=== PATIENT | female | born 1950 | race Caucasian/White ===

== ENCOUNTER 2018-02-21 09:12 | Outpatient (CLI) | payer MEDICARE ==
--- NOTE | 2018-02-21 10:37 | RAD ---
THREE VIEWS LUMBAR SPINE: CLINICAL HISTORY: Low back pain. FINDINGS: Thee is evidence of vertebroplasty of T12 with mild associated height loss. Grade I spondylolisthesi s at L4-5 present. There is multilevel facet osteoarthritis. Mild disk degenerative change at the m id to lower lumbar spine is present. IMPRESSION: 1. No acute fracture identified. 2. T12 vertebroplasty. 3. Presumed degenerative listhesis at L4-5. POS: ODETTE
== END 2018-02-21 09:13 | disposition home or self-care (01) ==
LOC: RAD-FRANK 09:12
PROVIDERS: ATTEND Nurse Practitioner Family
DX: M54.5 Low back pain (principal); Z98.890 Other specified postprocedural states
CPT/HCPCS: 72100

== ENCOUNTER 2018-06-22 08:18 | Outpatient (CLI) | payer MEDICARE ==
--- NOTE | 2018-06-22 08:35 | RAD ---
XR Hand Rt 3 View STANDARD: 06/22/2018 12:00 AM CLINICAL INDICATION: Right hand pain COMPARISON: None. TECHNIQUE: 3 views. Laterality: Right hand. FINDINGS: Bones: No acute osseous abnormality Joints: There is scattered osteoarthrosis involving the IP joints of the right hand. There is mild fi rst CMC joint osteoarthrosis.. Soft Tissue: Normal-appearing. IMPRESSION: Scattered osteoarthrosis of the right hand.
== END 2018-06-22 08:19 | disposition home or self-care (01) ==
LOC: RAD-FRANK 08:18
PROVIDERS: ATTEND Nurse Practitioner Family
DX: M79.641 Pain in right hand (principal); M19.041 Primary osteoarthritis, right hand

== ENCOUNTER 2019-07-11 08:10 | Outpatient (CLI) | payer MEDICARE ==
--- NOTE | 2019-07-11 08:26 | RAD ---
Exam:Right thumb 3 views HISTORY: Evaluate for foreign body COMPARISON: None FINDINGS: No fracture, cortical irregularity or periosteal reaction. 3.5 mm foreign body is noted in the soft tissues overlying the first metacarpal. IMPRESSION: Radiopaque foreign body as above.
== END 2019-07-11 08:11 | disposition home or self-care (01) ==
LOC: RAD-FRANK 08:10
PROVIDERS: ATTEND Nurse Practitioner Family
DX: S69.91XA Unspecified injury of right wrist, hand and finger(s), initial encounter (principal); S60.351A Superficial foreign body of right thumb, initial encounter

== ENCOUNTER 2019-10-20 13:21 | Outpatient (CLI) | payer MEDICARE ==
--- NOTE | 2019-10-20 13:37 | RAD ---
Left RIBS 3 views HISTORY: Injury. FINDINGS: Minimally displaced fracture involves the anterior aspect of left rib 5. No evidence of pneumothorax. Metallic clips overlie the mediastinum and left axilla. Calcification over the aortic arch. IMPRESSION : Left anterior fifth rib fracture. Atherosclerosis.
== END 2019-10-20 13:22 | disposition home or self-care (01) ==
LOC: BICRAD 13:21
PROVIDERS: ATTEND Nurse Practitioner Family
DX: R07.81 Pleurodynia (principal); S22.32XA Fracture of one rib, left side, initial encounter for closed fracture; I70.90 Unspecified atherosclerosis

== ENCOUNTER 2021-03-05 09:51 | Outpatient (CLI) | payer MEDICARE | END 2021-03-05 09:52 | disposition home or self-care (01) | LOC: RAD-FRANK 09:51 | PROVIDERS: ATTEND Nurse Practitioner Family | DX: M25.532 Pain in left wrist (principal) ==

== ENCOUNTER 2021-06-23 09:20 | Outpatient (CLI) | payer MEDICARE | END 2021-06-23 09:21 | disposition home or self-care (01) | LOC: RAD-FRANK 09:20 | PROVIDERS: ATTEND Nurse Practitioner Family | DX: M25.572 Pain in left ankle and joints of left foot (principal); Z87.81 Personal history of (healed) traumatic fracture ==

== ENCOUNTER 2021-07-05 08:12 | Emergency (ER) | payer MEDICARE | END 2021-07-05 12:45 | disposition home or self-care (01) | LOC: ERS 08:12 | DX: I82.402 Acute embolism and thrombosis of unspecified deep veins of left lower extremity (principal); M71.22 Synovial cyst of popliteal space [Baker], left knee; I10 Essential (primary) hypertension; K21.9 Gastro-esophageal reflux disease without esophagitis; E03.9 Hypothyroidism, unspecified; W18.42XA Slipping, tripping and stumbling without falling due to stepping into hole or opening, initial encounter ==

== ENCOUNTER 2024-02-15 07:14 | Outpatient (CLI) | payer MEDICARE | END 2024-02-15 07:15 | disposition home or self-care (01) | LOC: NM 07:14 | PROVIDERS: ATTEND Physician Assistant Medical | DX: K21.00 Gastro-esophageal reflux disease with esophagitis, without bleeding (principal); R68.81 Early satiety; R11.2 Nausea with vomiting, unspecified | CPT/HCPCS: 78264; A9541 ==

== ENCOUNTER 2024-03-24 07:42 | Inpatient (IN) | payer MEDICARE ==
[2024-03-24 08:22] LABS: #Basophils 0.05 10x3/uL (0.0-0.2); %Eosinophils 4.7 % (0.0-10.0); %Lymphocytes 39.7 % (21.0-51.0); %Neutrophils 44.2 % (42.0-75.0); Hematocrit 36.1 % (36.0-47.0); Hemoglobin 11.7 g/dL (12.0-16.0); Mean Corpuscular HGB CONC 32.4 g/dL (32.0-36.0); Mean Corpuscular Hemoglobin 28.6 pg (27.0-31.0); Mean Corpuscular Volume 88.3 fL (78.0-98.0); Mean Platelet Volume 9.2 fL (7.4-10.4); Platelet Count 325 10x3/uL (130-400); RBC Distribution Width 15.3 % (11.5-14.5); Red Blood Cell (RBC) Count 4.09 mill/uL (4.20-5.40)
[2024-03-24 08:41] LABS: ALT (SGPT) 12 U/L (Less than 34); AST (SGOT) 30 U/L (11-34); Albumin 3.5 g/dL (3.1-4.5); Alkaline Phosphatase 142 U/L (40-110); Anion Gap 15 mmol/L (10-20); BUN (Urea Nitrogen) 15 mg/dL (9.8-20.1); Bilirubin, Total 0.4 mg/dL (0.3-1.2); Calc. Creatinine Clearance 0 mL/min (70-130); Calcium 9.2 mg/dL (7.8-10.44); Carbon Dioxide 25 mmol/L (23-31); Chloride 106 mmol/L (98-107); Estimated GFR 65; Globulin 3.9 g/dL (2.4-3.5); Glucose 108 mg/dL (83-110); Potassium 3.8 mmol/L (3.5-5.1); Protein, Total 7.4 g/dL (5.8-8.1); Sodium 142 mmol/L (136-145)
[2024-03-24 08:45] LABS: Troponin I Less than 0.010 ng/mL (< 0.028)
[2024-03-24] MEDS ORDERED: Aspirin Chewable 81 MG TAB ONE (09:34)
[2024-03-24] MEDS ORDERED: Ondansetron PF 4 MG/2 ML Vial IVP PRN (11:06)
[2024-03-24] MEDS ORDERED: Ondansetron ODT 4 MG TAB PO PRN (11:07)
[2024-03-24] MEDS ORDERED: Enoxaparin 40 MG (0.4 mL) SYRINGE ONE (11:54)
[2024-03-24] MEDS: Enoxaparin 40 MG (0.4 mL) SYRINGE SC SCH (11:57)
[2024-03-24 13:13] LABS: Hemoglobin A1c 5.4 % (4.0-6.0)
[2024-03-24 13:26] LABS: Troponin I Less than 0.010 ng/mL (< 0.028)
[2024-03-24] MEDS ORDERED: Morphine 2 MG/ML VIAL SLOW IVP PRN (14:20)
[2024-03-24 14:28] VITALS: BMI 23.0
[2024-03-24 19:06] LABS: Troponin I Less than 0.010 ng/mL (< 0.028)
[2024-03-24] MEDS: Atorvastatin Calcium 10 MG TAB PO SCH (20:18)
[2024-03-24] MEDS: Acetaminophen 325 MG TAB PO PRN (23:31)
[2024-03-25 05:23] LABS: #Basophils 0.05 10x3/uL (0.0-0.2); %Basophils 1.1 % (0.0-1.0); %Eosinophils 5.1 % (0.0-10.0); %Lymphocytes 42.3 % (21.0-51.0); %Monocytes 10.9 % (0.0-10.0); %Neutrophils 40.4 % (42.0-75.0); Hematocrit 33.2 % (36.0-47.0); Hemoglobin 10.7 g/dL (12.0-16.0); Mean Corpuscular HGB CONC 32.2 g/dL (32.0-36.0); Mean Corpuscular Hemoglobin 28.6 pg (27.0-31.0); Mean Corpuscular Volume 88.8 fL (78.0-98.0); Mean Platelet Volume 9.3 fL (7.4-10.4); Platelet Count 309 10x3/uL (130-400); RBC Distribution Width 15.3 % (11.5-14.5); Red Blood Cell (RBC) Count 3.74 mill/uL (4.20-5.40)
[2024-03-25 05:51] LABS: Anion Gap 16 mmol/L (10-20); BUN (Urea Nitrogen) 13 mg/dL (9.8-20.1); Calc. Creatinine Clearance 58 mL/min (70-130); Calcium 9.3 mg/dL (7.8-10.44); Carbon Dioxide 26 mmol/L (23-31); Cardiac Risk 2.3 (Less than 4.5); Chloride 104 mmol/L (98-107); Cholesterol 110 mg/dl (< 200 Desired); Estimated GFR 72; Glucose 105 mg/dL (83-110); HDL Cholesterol 47 mg/dL (>60 Neg Risk); LDL Cholesterol, Calculated 42 mg/dL; Potassium 4.1 mmol/L (3.5-5.1); Sodium 142 mmol/L (136-145); Triglycerides 106 mg/dL (Less than 150)
[2024-03-25] MEDS: Levothyroxine Sodium 75 MCG TAB PO SCH (06:17)
[2024-03-25] MEDS: Enoxaparin 40 MG (0.4 mL) SYRINGE SC SCH (08:41)
[2024-03-25] MEDS: Escitalopram Oxalate 10 mg Tablet PO SCH (08:42)
[2024-03-25] MEDS: Pantoprazole 40 MG DR.TAB PO SCH (08:42)
[2024-03-25] MEDS: Mirabegron ER 25 MG ER.TAB PO SCH (08:42)
[2024-03-25] MEDS: Losartan 25 MG TAB PO SCH (08:43)
[2024-03-25] MEDS ORDERED: Regadenoson 0.4 MG/5 ML SYRINGE ONE (08:57)
[2024-03-25] MEDS ORDERED: Iopamidol-370 76% 500 ML MDV (1 ML CHARGE) ONE (15:16)
[2024-03-25] MEDS: UDCUP PO PRN (19:25)
[2024-03-25] MEDS: BISMUTH SUBSALICYLATE 524 MG/30 ML PO PRN (19:25)
[2024-03-26 06:27] LABS: Immunoglob - A (Total IgA) 307 mg/dL (69-517); Immunoglob - G (Total IgG) 1169 mg/dL (552-1631); Immunoglob - M (Total IgM) 97 mg/dL (33-293)
[2024-03-26 08:11] VITALS: BP 128/78; TEMP 98.3
[2024-03-27 09:36] LABS: Kappa Lambda Light Chain Ratio 1.71 (0.26-1.65); Kappa Light Chains 32.1 mg/L (3.3-19.4); Lambda Light Chain 18.8 mg/L (5.7-26.3)
[2024-03-27 15:37] LABS: IgA - Total IgA (Sendout) 289 mg/dL (64-422); Immunoglobulin - G (Sendout) 1069 mg/dL (586-1602); Immunoglobulin - M (Sendout) 91 mg/dL (26-217)
[2024-03-27 16:36] LABS: Albumin 3.1 g/dL (2.9-4.4); Alpha 1 0.3 g/dL (0.0-0.4); Alpha 2 0.9 g/dL (0.4-1.0); Globulin, Total 3.2 g/dL (2.2-3.9); M-Spike Not Observed g/dL (Not Observed)
== END 2024-03-26 10:33 | disposition home or self-care (01) | DRG 204 ==
LOC: SUATTDRO 07:42 → ERS 07:42 → ERHOLD 11:10 → OBS 14:24 → OBSVTOIN 03-25 16:14
PROVIDERS: ADMIT Family Medicine; ATTEND Internal Medicine
DX: R07.81 Pleurodynia (principal); C79.51 Secondary malignant neoplasm of bone; I10 Essential (primary) hypertension; E78.5 Hyperlipidemia, unspecified; E03.9 Hypothyroidism, unspecified; Z90.12 Acquired absence of left breast and nipple; Z98.890 Other specified postprocedural states; Z85.3 Personal history of malignant neoplasm of breast
CPT/HCPCS: 36415; 71045; 71275; 74177; 78452; 80048; 80053; 80061; 83036; 83690; 83880; 83883; 84155; 84165; 84443; 84484; 85025; 85379; 86300; 86334; 93005; 93017; 94760; 96372; A9502; G0378; J1650; J2785; Q9967

== ENCOUNTER 2024-09-14 09:49 | Outpatient (CLI) | payer MEDICARE | END 2024-09-14 09:50 | disposition home or self-care (01) | LOC: CT 09:49 | PROVIDERS: ATTEND Internal Medicine Hematology & Oncology | DX: C50.111 Malignant neoplasm of central portion of right female breast (principal); C79.51 Secondary malignant neoplasm of bone; D70.1 Agranulocytosis secondary to cancer chemotherapy; R91.8 Other nonspecific abnormal finding of lung field; M89.9 Disorder of bone, unspecified; T45.1X5A Adverse effect of antineoplastic and immunosuppressive drugs, initial encounter | CPT/HCPCS: 71260; 74177 ==